=== PATIENT | female | born 1940 | race Caucasian/White ===

== ENCOUNTER 2023-12-20 12:11 | Emergency (ER) | payer MEDICARE, BC, SELFPAY ==
[2023-12-20 12:21] VITALS: BP 150/73; PULSE 79; RESP 16; TEMP 36.6; O2SAT 100
[2023-12-20 12:30] VITALS: BP 150/73
--- NOTE | 2023-12-20 12:38 | ED.URI ---
HPI - URI/Sore Throat General Chief Complaint: Upper Respiratory Infection Stated Complaint: COUGH/SINUS CONGESTION Time Seen by Provider: 12/20/23 12:39 Source: patient Mode of arrival: ambulatory Limitations: no limitations History of Present Illness HPI Narrative: 83-year-old female presents with complaint of nasal and sinus congestion, postnasal drainage, runny nose, cough for over a week. Taking Mucinex at night to treat symptoms. Took a Zyrtec this morning and states is helping with runny nose. No chest pain or shortness breath. Afebrile. All systems reviewed and negative except as noted above. Related Data Home Medications Medication Instructions Recorded Confirmed metoprolol tartrate 25 mg tablet 25 mg PO BID 05/11/21 12/20/23 Allergies Allergy/AdvReac Type Severity Reaction Status Date / Time No Known Allergies Allergy Mild Verified 12/20/23 12:35 Review of Systems Review of Systems: CONSTITUTIONAL: Denies fever, chills, or sweats. EYES: Denies visual changes, redness, or discharge. ENT: Reports rhinorrhea, congestion, sinus congestion. Denies sore throat, or otalgia. CARDIOVASCULAR: Denies chest pain, palpitations, or edema. RESPIRATORY: Reports cough. Denies dyspnea. GASTROINTESTINAL: Denies abdominal pain, nausea, vomiting, or diarrhea. GENITOURINARY: Denies dysuria or hematuria. SKIN: Denies rash or itching. MUSCULOSKELETAL: Denies back pain, joint pain, or myalgia. NEUROLOGIC: Denies headache, numbness, or weakness. PSYCHIATRIC: Denies anxiety or depression. All other systems reviewed are negative, except as documented in HPI. [facility] Family History Family History Father Cerebrovascular accident Family history of diabetes mellitus in first degree relative Sibling Family history of lung cancer Other Family history of hypothyroidism Hypertension Social History Social History Smoking status: Never smoker Second hand tobacco smoke exposure: No Alcohol intake: never Substance use: never Substance use type: does not use Lack of Transportation: No Lack of Food: Never True Current Housing: I Have Housing Concerned About Future Housing: No Difficulty Paying Gas/Electric Bills: No Difficulty Paying for Meds: No Currently Unemployed: No Education: High School Diploma/GED Difficulty w/ Childcare or Family Care: No Comments At time of signature, agree with nursing past medical, surgical, social and family history. There is no relevant family history pertinent to the presenting complaint. Exam Narrative: GENERAL: This is a well-nourished, well-developed patient, in no apparent distress. HEAD: normocephalic, atraumatic. EYES: PERRL. Sclera clear/white. Vision is grossly intact. EARS: External ears normal, auditory canals clear and without drainage, TMs normal without perforation. Hearing grossly intact. NOSE: Erythematous blisters just below nares. Moderate congestion, purulent nasal drainage, erythema and swelling to bilateral nares. THROAT: Mucous membranes moist, erythema with postnasal drainage. NECK: Neck supple, non-tender without lymphadenopathy, masses or thyromegaly. CARDIOVASCULAR: Regular rate and rhythm without murmurs, gallops, or rubs. RESPIRATORY: Clear to auscultation. Breath sounds equal bilaterally. No wheezes, rales, or rhonchi. SKIN: warm, Dry, intact with no suspicious lesions or rash, good texture and turgor. NEURO: awake, alert, and oriented to person, place and time. There were no obvious focal neurologic abnormalities. EXTREMITIES: No joint tenderness, effusion, or edema noted. Course Course Level of Care: Express Care Visit Vital Signs Vital signs: Vital Signs Temperature 36.6 C 12/20/23 12:21 Pulse Rate 79 12/20/23 12:21 Respiratory Rate 16 12/20/23 12:21 Blood Pressure 150/73 H 12/20/23 12:21 Pulse
== END 2023-12-20 12:50 | disposition home or self-care (01) ==
PROVIDERS: Emergency Provider Nurse Practitioner Family; PCP Family Medicine
DX: J01.90 Acute sinusitis, unspecified (principal); S00.32XA Blister (nonthermal) of nose, initial encounter; L08.9 Local infection of the skin and subcutaneous tissue, unspecified; X58.XXXA Exposure to other specified factors, initial encounter; I10 Essential (primary) hypertension; E03.9 Hypothyroidism, unspecified; Z90.711 Acquired absence of uterus with remaining cervical stump
CPT/HCPCS: 99213; G0463

== ENCOUNTER 2025-03-05 11:19 | Emergency (ER) | payer MEDICARE, BC, SELFPAY ==
--- NOTE | ~2025-03-05 | XR_ITS ---
EXAMINATION: XR foot RT min 3V DATE: 03/05/2025 11:52 INDICATION: Pain at the fourth and fifth metatarsals post trauma TECHNIQUE: Dorsoplantar, two oblique and lateral views of the right foot were obtained. COMPARISON: None. FINDINGS: Mild hallux valgus with irregular contour to the head of the first metatarsal consistent with bunion and/or prior bunionectomy. Likely hammertoe corrections at the fourth and fifth toes with widening of the proximal interphalangeal joints and suggestion of osteotomies at the heads of the proximal phala nges. A few small dystrophic calcifications in the region of the nailbed of the fifth toe. No acute f racture. Mild polyarticular osteoarthritis is prompt at the first metatarsophalangeal joint to lesser degree at the remaining metatarsophalangeal joints and multiple tarsal metatarsal and interphalangea l joints. The fourth and fifth distal interphalangeal joints are fused. Moderate-sized Achilles and p lantar calcaneal spurs. Soft tissues are unremarkable. IMPRESSION: 1. 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 No acute osseous abnormality. Reviewed, dictated and finalized at location A. IMPRESSION: 1. 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 No acute osseous abnormality.
[2025-03-05 11:30] VITALS: BP 142/80; PULSE 74; RESP 16; O2SAT 98
--- NOTE | 2025-03-05 12:09 | ED_ITS ---
HPI - Extremity Injury (Lower) General Chief Complaint: Extremity Injury, Lower Stated Complaint: INJURD TOE Time Seen by Provider: 03/05/25 11:40 Source: patient and RN notes reviewed Mode of arrival: ambulatory Limitations: no limitations History of Present Illness HPI Narrative: He 5-year-old female Presents Express Care complaining of injury to right foot. Patient reports she accidentally jammed her foot on the steps going up stairs approximately 2-3 days ago. Patient denies any falls. Patient reports pain primarily in her 4th toe of her right foot. Patient reports some pain with bearing weight to her right foot. Patient has been doing eyes without relief. Patient denies any numbness, tingling or any other injuries. Patient has denies any significant past medical history. Related Data Home Medications ?Medication ?Instructions ?Recorded ?Confirmed ?Last Taken ?Type alendronate 70 mg tablet mg PO 03/05/25 Unknown History Allergies Allergy/AdvReac Type Severity Reaction Status Date / Time No Known Allergies Allergy Mild Verified 03/05/25 11:21 Review of Systems Review of Systems: CONSTITUTIONAL: Denies fever, chills, or sweats. EYES: Denies visual changes, redness, or discharge. ENT: Denies rhinorrhea, congestion, sore throat, or otalgia. CARDIOVASCULAR: Denies chest pain, palpitations, or edema. RESPIRATORY: Denies cough or dyspnea. GASTROINTESTINAL: Denies abdominal pain, nausea, vomiting, or diarrhea. GENITOURINARY: Denies dysuria or hematuria. SKIN: Denies rash, wound, or itching. MUSCULOSKELETAL: Denies back pain, joint pain, or myalgia. Positive for right foot/toe injury and swelling NEUROLOGIC: Denies headache, numbness, or weakness. PSYCHIATRIC: Denies anxiety or depression. All other systems reviewed are negative, except as documented in HPI. [facility] Family History Family History Father Cerebrovascular accident Family history of diabetes mellitus in first degree relative Sibling Family history of lung cancer Other Family history of hypothyroidism Hypertension Social History Social History Smoking status: Never smoker Second hand tobacco smoke exposure: No Alcohol intake: never Substance use: never Substance use type: does not use Lack of Transportation: No Lack of Food: Never True Current Housing: I Have Housing Concerned About Future Housing: No Difficulty Paying Gas/Electric Bills: No Difficulty Paying for Meds: No Currently Unemployed: No Education: High School Diploma/GED Difficulty w/ Childcare or Family Care: No Comments At the time of my signature, I reviewed and agree with the nursing past medical, surgical, social, and family history. There is no relevant family history pertinent to the patient complaint. Exam Narrative: GENERAL: This is a well-nourished, well-developed adult, in no apparent distress. They are non ill-appearing, nontoxic appearing. HEAD: normocephalic, atraumatic. EYES: Sclera clear/white. Vision is grossly intact. Conjunctiva normal. Extraocular movement intact. EARS: External ears normal Hearing grossly intact. NOSE: External nose normal THROAT: Mucous membranes moist NECK: Neck supple CARDIOVASCULAR: Regular rate and rhythm RESPIRATORY: Respiratory rate normal, respiratory effort nonlabored, no respiratory distress NEURO: awake, alert, and oriented to person, place and time. There were no obvious focal neurologic abnormalities. EXTREMITIES: Right foot No obvious deformity. There is mild swelling bruising to the distal dorsal surface of the lateral foot. There is swelling to the 4th phalanx of right foot. Tenderness to palpation to the 4th phalanx of the right foot. Nontender through full range of motion. Capillary refill less than 3 seconds. Right pedal Pulse 2 +palpable. Normal sensation. Neurovascular status intact distal injury. Patient able to wiggle her toes. BACK: Nontender without deformity. Course Course Emergency Course: Portions of this record may have been created with voice recognition software Level of Care: Express Care Visit Vital Signs Vital signs: Vital Signs Pulse Rate 74 03/05/25 11:30 Respiratory Rate 16 03/05/25 11:30 Blood Pressure 142/80 H 03/05/25 11:30 Pulse Oximetry 98 03/05/25 11:30 Pulse Rate 74 03/05/25 11:30 Respiratory Rate 16 03/05/25 11:30 Blood Pressure 142/80 H 03/05/25 11:30 Pulse Oximetry 98 03/05/25 11:30 Reviewed MDM - Extremity Injury (Lower) MDM Narrative Medical decision making narrative: X-ray right foot shows no evidence of fracture or acute findings. Incidental finding of arthritis changes to right foot. Patient likely has a toe sprain. Discussed physical exam findings. Advised supportive measures and signs/symptoms to go to the ER. Pt is appropriate for outpt treatment and f/u. Differential Diagnosis Differential diagnosis: Likely other (Toe fracture, toe sprain, foot fracture, f oot sprain) Imaging Data Radiologist's impression: ITS Impressions Foot X-Ray 03/05/25 11:53 IMPRESSION: 1. 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 No acute osseous abnormality. Critical Care Time Critical Care Time Critical Care Time: No Discharge Plan Discharge Clinical Impression: Injury of toe on right foot Qualifiers: Encounter type: initial encounter Qualified Code(s): S99.921A - Unspecified injury of right foot, initial encounter Patient Disposition: Home Condition: Stable Instructions: Foot Sprain (ED) Additional Instructions: X-ray right foot was negative for any fractures or acute findings. Is noted there is arthritis changes to her right foot. Rest and elevate the leg; bear weight as tolerated Apply ice 15-20 minute intervals several times a day Motrin 600mg -800mg every 6 state 8 hours, alternate with Tylenol 1000mg every 6 a 8 hours as needed Follow up with your primary care provider as needed in 1-2 weeks especially if pain persists. Patient Language: [place] Prescriptions: No Action mupirocin 2 % ointment 1 applic topical BID 7 Days Qty: 15 0RF alendronate 70 mg tablet PO alprazolam 0.25 mg tablet 0.25 mg PO QHS PRN (Reason: anxiety) Qty: 30 0RF levothyroxine 50 mcg tablet 50 mcg PO DAILY Qty: 90 1RF metoprolol tartrate 25 mg tablet 25 mg PO BID Qty: 180 1RF Follow-up/Referrals: Vignesh Mcpherson MD [Primary Care Provider] - Time of Disposition: 12:07
== END 2025-03-05 12:14 | disposition home or self-care (01) ==
PROVIDERS: PCP Family Medicine
DX: S99.921A Unspecified injury of right foot, initial encounter (principal); W22.8XXA Striking against or struck by other objects, initial encounter; I10 Essential (primary) hypertension; E03.9 Hypothyroidism, unspecified; Z90.711 Acquired absence of uterus with remaining cervical stump
CPT/HCPCS: 73630; 99213; G0463

== ENCOUNTER 2025-05-05 06:20 | Emergency (ER) | payer MEDICARE, BC, SELFPAY ==
[2025-05-05] VITALS (19 sets, daily range): BP systolic 136–197; BP diastolic 61–122; PULSE 66–97; RESP 11–28; TEMP 36.4; O2SAT 92–99
--- NOTE | ~2025-05-05 | XR_ITS ---
Examination: XR chest 2V Clinical History: shortness of breath Comparison: None Technique: PA and Lateral Findings: Loop recorder. Cardiomegaly. Lungs clear. No acute bony abnormality. Osteopenia. Small hiatal hernia. IMPRESSION: 1. No acute cardiopulmonary findings. Reviewed, dictated and finalized at location R.
--- NOTE | ~2025-05-05 | XR_ITS ---
EXAMINATION: XR shoulder LT min 2V, 05/05/2025 8:10 CDT HISTORY: PT STATES PAIN TO LEFT SHOULDER X WEEKS COMPARISON: No comparisons available. Findings: No acute fracture or malalignment. No significant degenerative changes. Soft tissues unremarkable. Impression: No acute fracture or malalignment. Reviewed, dictated and finalized at location P. Impression: No acute fracture or malalignment.
--- NOTE | ~2025-05-05 | CT_ITS ---
EXAMINATION: CTA chest PE protocol DATE: 05/05/2025 08:41 INDICATION: Shortness of breath. TECHNIQUE: Computed tomography angiography (CTA) of the chest was performed with 100 mL Omnipaque-350 intravenous contrast timed to evaluate the pulmonary arteries. Coronal maximum intensity projection 3D-reconstructions were created by the technologist. Automated exposure control and iterative reconstruction technique were employed. The dose-length product was 201.07 mGy-cm. COMPARISON: CT abdomen and pelvis 12/03/2010 FINDINGS: The lungs demonstrate mild atelectasis. Calcified left lung nodules and calcified left hilar lymph nodes are consistent with old granulomatous disease. No pleural effusion. There are changes of right hemithyroidectomy. There is a nodule in left thyroid lobe measuring 10 mm, likely not clinically significant. Cardiomegaly is noted. No pericardial effusion. There is no pulmonary embolus. There is a moderate-sized sliding hiatal hernia. Calcifications in the spleen are consistent with old granulomatous disease. There are cysts in right kidney measuring up to 2.5 cm. There is severe cervical spondylosis and moderate thoracic spondylosis. IMPRESSION: 1. No pulmonary embolus. 2. Moderate-sized sliding hiatal hernia. Reviewed, dictated and finalized at location E.
--- NOTE | 2025-05-05 06:24 | ECG_ITS ---
Test Date: 2025-05-05 06:29:58 Measurements Intervals Mize Rate: 89 P: 26 GA: 160 QRS: -31 QRSD: 100 T: 3 QT: 371 QTc: 453 Interpretive Statements SINUS RHYTHM LEFT AXIS DEVIATION [QRS AXIS < -30] VOLTAGE CRITERIA FOR LVH [MEETS CRITERIA IN ONE OF: R(aVL), S(V1), R(V5), R(V5/V6)+S(V1)] artifact No previous ECG available for comparison Electronically Signed On 05-05-2025 06:32:40 CDT by Sulaiman Valverde M.D.
[2025-05-05 06:42] LABS: Hematocrit 46.3 % (37.0-47.0); Hemoglobin 14.9 g/dL (12.0-15.0); Immature Granulocyte Percent A 0.1 % (0-0.5); Lymphocytes Absolute Auto 3.77 K/mm3 (0.9-3.2); Mean Corpuscular HGB Conc 32.2 g/dl (32-36); Mean Corpuscular Hemoglobin 28.1 pg (26-34); Mean Corpuscular Volume 87.4 fl (80-100); Nucleated Red Blood Cells Absolute Auto 0.000 K/mm3 (0.0-0.012); Nucleated Red Blood Cells Perc 0.0 % (0.0-0.2); Platelet Count Result 197 k/mm3 (150-375); Red Blood Count 5.30 M/mm3 (4.2-5.4); White Blood Count 8.3 K/mm3 (4.5-10.0)
[2025-05-05 07:06] LABS: Alanine Aminotransferase 18 U/L (6-35); Albumin Level 4.3 g/dL (3.5-5.1); Alkaline Phosphatase 120 U/L (38-126); Anion Gap 11 mmol/L (4-12); Aspartate Amino Transferase 28 U/L (14-36); Bilirubin,Total 0.7 mg/dL (0.2-1.3); Blood Urea Nitrogen 15 mg/dL (7-17); Calcium 8.4 mg/dL (8.4-10.2); Carbon Dioxide 22 mmol/L (22-30); Chloride 105 mmol/L (98-107); Estimated CRCL calculation 34 ml/min; Estimated Glomerular Filt Rate 57; Glucose 117 mg/dL (65-110); Potassium 3.4 mmol/L (3.4-5.0); Sodium 138 mmol/L (137-145); Total Protein 7.6 g/dL (6.3-8.2)
[2025-05-05 07:39] LABS: INR 1.0; Prothrombin Time 12.9 Seconds (11.1-14.7)
[2025-05-05 07:40] LABS: Partial Thromboplastin Time 26.4 Seconds (22.3-36.8); Troponin I < 0.012 ng/mL (0.000-0.034)
--- NOTE | 2025-05-05 08:12 | ED_ITS ---
HPI - SOB/Dyspnea General Chief Complaint: Shortness of Breath/Dyspnea Stated Complaint: sob, shoulder pain Time Seen by Provider: 05/05/25 07:00 Source: patient, RN notes reviewed and old records reviewed Mode of arrival: ambulatory Limitations: no limitations History of Present Illness HPI Narrative: This is an 85 year old female with history of hypertension who presents for evaluation of shortness of breath. She reports having shortness of breath with walking up stairs for 1 month. She denies having to stop or having sob with walking around stores. She became concerned this morning because she felt sob walking around. She denies chest pain, cough or fever. She does reports intermittent palpitations in which she describes as heart pounding, and she has been dealing with this for years. She has a neonatal intensive care unit nurse in [place] and she has an appointment in a couple of weeks. She reports negative stress test years ago. She is also complaining of left shoulder pain with movement of her arm for a couple of weeks. She denies any pain or injury. Related Data Home Medications ?Medication ?Instructions ?Recorded ?Confirmed ?Last Taken ?Type alendronate 70 mg tablet mg PO 03/05/25 Unknown Hist ory Allergies Allergy/AdvReac Type Severity Reaction Status Date / Time No Known Allergies Allergy Mild Verified 03/05/25 11:21 Review of Systems 2 Constitutional: Constitutional: Denies chills, Denies fatigue and Denies fever(s) ENT: Denies nasal congestion Cardiovascular: Cardiovascular: Denies chest pain Respiratory: Respiratory: Denies chest congestion, Denies cough and Reports dyspnea Gastrointestinal: Gastrointestinal: Reports nausea PMFSH Past Medical History Medical History (Updated 05/05/25 @ 09:57 by Nany Alfaro MD) Hypothyroidism Mixed hyperlipidemia Diastolic dysfunction Essential (primary) hypertension Family History Family History Father Cerebrovascular accident Family history of diabetes mellitus in first degree relative Sibling Family history of lung cancer Other Family history of hypothyroidism Hypertension Social History Social History Smoking status: Never smoker Second hand tobacco smoke exposure: No Alcohol intake: never Substance use: never Substance use type: does not use Lack of Transportation: No Lack of Food: Never True Current Housing: I Have Housing Concerned About Future Housing: No Difficulty Paying Gas/Electric Bills: No Difficulty Paying for Meds: No Currently Unemployed: No Education: High School Diploma/GED Difficulty w/ Childcare or Family Care: No Exam 2 Const: General: no acute distress and alert Nutritional Appearance: well nourished and obese Orientation/consciousness: patient oriented x3 HENMT: Head: normal to inspection Chest: Chest palpation & inspection: normal inspection of the chest Resp: Effort & Inspection: normal respiratory effort Auscultation: clear to auscultation bilaterally Cardio: Rate: regular rate Rhythm: regular rhythm Heart sounds: no murmurs GI: GI Palp: Yes Soft to palpation, No Tenderness to palpation present (GI), No Guarding due to palpation present (GI) and No Rigid due to palpation A uscultation: normal bowel sounds Skin: General skin exam: normal color Rashes: no rashes Neuro: General: patient oriented x3, moves all extremities and CN's II-XI intact bilaterally Extrem: General: normal to inspection and no clubbing, cyanosis or edema Psych: Mental Status: mental status grossly normal Affect: normal affect Attitude: cooperative Course Reevaluation(s) Reevaluation #1: I spoke with patient and her about all results. I discussed that I believe that her shoulder pain is muscular . Her evaluation for shortness of breath has been unremarkable . She is not hypoxic. She has appointment with neonatal intensive care unit nurse so she will follow up Date: 05/05/25 Time: 09:51 Vital Signs Vital signs: Vital Signs Temperature 97.6 F 05/05/25 06:25 Pulse Rate 97 05/05/25 06:25 Respiratory Rate 20 05/05/25 06:25 Blood Pressure 197/122 H 05/05/25 06:25 Pulse Oximetry 98 05/05/25 06:25 Oxygen Delivery Room Air 05/05/25 06:25 Temperature 97.6 F 05/05/25 06:25 Pulse Rate 69 05/05/25 10:01 Respiratory Rate 23 H 05/05/25 10:01 Blood Pressure 153/74 H 05/05/25 10:01 Pulse Oximetry 97 05/05/25 10:01 Oxygen Delivery Room Air 05/05/25 06:28 MDM - SOB/Dyspnea Differential Diagnosis Differential diagnosis: Likely acute exacerbation of chronic obstructive airways disease, congestive heart failure, community acquired pneumonia, asthma with exacerbation and pulmonary embolism Medical Records Attestation: I reviewed the patient's medical records. Lab Data Attestation: I reviewed the patient's lab results. 05/05/25 06:30 05/05/25 06:30 Labs: Lab Results 05/05/25 Range/Units 06:30 WBC 8.3 (4.5-10.0) K/mm3 RBC 5.30 (4.2-5.4) M/mm3 Hgb 14.9 (12.0-15.0) g/dL Hct 46.3 (37.0-47.0) % MCV 87.4 (80-100) fl MCH 28.1 (26-34) pg MCHC 32.2 (32-36) g/dl RDW 12.6 (11.5-14.5) % Plt Count 197 (150-375) k/mm3 MPV 10.9 H (7.4-10.4) fl Immature Gran % (Auto) 0.1 (0-0.5) % Neut % (Auto) 40.0 L (45.5-73.1) % Lymph % (Auto) 45.3 H (18.3-44.2) % Tyrrell % (Auto) 10.1 H (2.6-8.5) % Eos % (Auto) 3.5 (0-4.4) % Baso % (Auto) 1.0 (0.2-1.2) % Lymph # (Auto) 3.77 H (0.9-3.2) K/mm3 Tyrrell # (Auto) 0.8 H (0.1-0.6) K/mm3 Eos # (Auto) 0.3 (0-0.3) K/mm3 Baso # (Auto) 0.1 (0.0-0.1) K/mm3 Abs Immat Gran (auto) 0.01 (0.00-0.031) K/mm3 Absolute Neuts (auto) 3.3 (1.3-6.7) K/mm3 Absolute Nucleated RBC 0.000 (0.0-0.012) K/mm3 Nucleated RBC % 0.0 (0.0-0.2) % PT 12.9 (11.1-14.7) Seconds INR 1.0 APTT 26.4 (22.3-36.8) Seconds D-Dimer 0.86 H (<0.48) ug/mL Sodium 138 (137-145) mmol/L Potassium 3.4 (3.4-5.0) mmol/L Chloride 105 (98-107) mmol/L Carbon Dioxide 22 (22-30) mmol/L Anion Gap 11 (4-12) mmol/L BUN 15 (7-17) mg/dL Creatinine 0.93 (0.7-1.0) mg/dL Estim Creat Clear Calc 34 ml/min Estimated GFR 57 L (59 - ) Glucose 117 H (65-110) mg/dL Calcium 8.4 (8.4-10.2) mg/dL Total Bilirubin 0.7 (0.2-1.3) mg/dL AST 28 (14-36) U/L ALT 18 (6-35) U/L Alkaline Phosphatase 120 (38-126) U/L Troponin I < 0.012 (0.000-0.034) ng/mL Total Protein 7.6 (6.3-8.2) g/dL Albumin 4.3 (3.5-5.1) g/dL ECG Data EKG #1: Attestation: I personally reviewed and interpreted this ECG as follows: ECG completion date: 05/05/25 ECG completion time: 06:29 EKG Interpretation: normal rate (89), sinus rhythm and left axis Discharge Plan Discharge Clinical Impression: Dyspnea Qualifiers: Dyspnea type: dyspnea on exertion Qualified Code(s): R06.09 - Other forms of dyspnea Left shoulder pain Qualifiers: Chronicity: acute Qualified Code(s): M25.512 - Pain in left shoulder Patient Disposition: Home Condition: Stable Instructions: Antibiotic Form, Dyspnea (ED), Shoulder Pain (ED) Additional Instructions: Take tylenol for your shoulder pain Patient Language: Libyan Prescriptions: No Action mupirocin 2 % ointment 1 applic topical BID 7 Days Qty: 15 0RF alendronate 70 mg tablet PO alprazolam 0.25 mg tablet 0.25 mg PO QHS PRN (Reason: anxiety) Qty: 30 0RF metoprolol tartrate 25 mg tablet 25 mg PO BID Qty: 180 1RF levothyroxine 50 mcg tablet See Rx Instructions .ROUTE .COMPLEX Qty: 90 0RF Dose Instruction: TAKE 1 TABLET BY MOUTH DAILY Rx Instructions: TAKE 1 TABLET BY MOUTH DAILY Follow-up/Referrals: Vignesh Mcpherson MD [Primary Care Provider, Family Practice]
== END 2025-05-05 10:11 | disposition home or self-care (01) ==
PROVIDERS: Emergency Provider General Practice; PCP Family Medicine
DX: R06.09 Other forms of dyspnea (principal); M25.512 Pain in left shoulder
CPT/HCPCS: 36415; 71046; 71275; 73030; 80053; 84484; 85025; 85380; 85610; 85730; 93005; 99284; Q9967